=== PATIENT | male | born 1980 | race Caucasian/White ===

== ENCOUNTER → 2018-03-14 16:03 | Outpatient (CLI) | payer MEDICAID, SELFPAY ==
--- NOTE | 2018-03-14 16:26 | MRI_ITS ---
STUDY: MRI LEFT SHOULDER REASON FOR EXAM: Male, 37 years old. Limited range of motion. Pain. History of prior dislocations. TECHNIQUE: Standardized fat and water weighted pulse sequences were obtained in all 3 orthogonal planes. COMPARISON: X-ray January 04, 2016 FINDINGS: Normal supraspinatus tendon. There is infraspinatus tendinosis with tendon thickening, but without a demonstrated tendon tear. Normal subscapularis tendon. Normal teres minor tendon. Normal supraspinatus muscle. Normal infraspinatus muscle. Normal subscapularis muscle. Normal teres minor muscle. There is a moderate volume joint effusion of the glenohumeral joint. There is small joint effusion. There is spurring of the humeral head and glenoid. Normal biceps labral complex. Normal intracapsular long biceps tendon. There is fluid in the biceps tendon sheath. There is labral degeneration with blunting of the connor, but there is no demonstrated discrete labral tear. Normal capsulo- ligamentous complex. Normal rotator interval. 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 There is a Type II morphology (curved), with a neutral orientation. There is os acromiale. There is no subacromial-subdeltoid bursal fluid. Normal visualized coracohumeral and coracoacromial ligaments. Normal quadrilateral space. Normal axillary space. Normal deltoid muscle. Normal trapezius muscle. MRI/Upper Ext Joint Only(Routine) IMPRESSION: Glenohumeral arthrosis. No rotator cuff tear. Electronically Signed: Minh Leal MD at 18:37 EDT , Service support ,
== END ==
PROVIDERS: Family Provider Family Medicine; PCP Family Medicine; Visit Provider Family Medicine
DX: M19.012 Primary osteoarthritis, left shoulder (principal); M75.102 Unspecified rotator cuff tear or rupture of left shoulder, not specified as traumatic
CPT/HCPCS: 73221

== ENCOUNTER → 2018-08-17 14:59 | Outpatient (CLI) | payer MEDICAID, SELFPAY ==
[2018-08-21 12:07] LABS: Testosterone, Free 2.28 ng/dL (5.00-21.00)
[2018-08-22 11:29] LABS: Testosterone, % Free 2.96 % (1.50-4.20); Testosterone, Total 77 ng/dL (264-916)
== END ==
PROVIDERS: Family Provider Family Medicine; PCP Family Medicine; Referring Provider Family Medicine; Visit Provider Family Medicine
DX: E29.1 Testicular hypofunction (principal)
CPT/HCPCS: 36415; 84402; 84403

== ENCOUNTER → 2018-08-28 14:57 | Outpatient (CLI) | payer MEDICAID, SELFPAY ==
--- NOTE | 2018-08-28 15:08 | RAD_ITS ---
STUDY: X-RAY - RIGHT SHOULDER REASON FOR EXAM: Male, 37 years old. Chronic right shoulder pain TECHNIQUE: 4 view(s) of the shoulder. COMPARISON: None. FINDINGS: There are mild degenerative changes of the acromioclavicular joint. The glenohumeral articulation is normal. There are no acute fractures. The surrounding soft tissues are normal. RAD/Shoulder min 2 Views IMPRESSION: No fracture. Mild degenerative changes of the acromioclavicular joint Electronically Signed: Henok Liang MD at 2:27 EDT Tel , Service support ,
[2018-09-01 14:07] LABS: Testosterone, Free 2.12 ng/dL (5.00-21.00)
[2018-09-04 11:50] LABS: Testosterone, % Free 3.48 % (1.50-4.20); Testosterone, Total 61 ng/dL (264-916)
== END ==
PROVIDERS: Family Provider Family Medicine; PCP Family Medicine; Referring Provider Family Medicine; Visit Provider Family Medicine
DX: E29.1 Testicular hypofunction (principal); M25.511 Pain in right shoulder
CPT/HCPCS: 36415; 73030; 84402; 84403

== ENCOUNTER → 2018-12-21 11:42 | Outpatient (CLI) | payer MEDICAID, SELFPAY ==
--- NOTE | 2018-12-21 11:44 | RAD_ITS ---
STUDY: X-RAY - RIGHT KNEE REASON FOR EXAM: Male, 38 years old. Pain. History of torn meniscus. TECHNIQUE: 4 view(s) of the knee. COMPARISON: Comparison is made with prior examination dated April 30, 2016. FINDINGS: Normal visualized distal femur. Normal visualized proximal tibia and fibula. Normal proximal tibiofibular articulation. Normal medial femorotibial compartment. Normal lateral femorotibial compartment. Normal patellofemoral articulation. Moderate sized joint effusion. RAD/Knee 4 or More Views IMPRESSION: Moderate sized joint effusion. Electronically Signed: Ash Thompson MD at 13:45 EST , Service support ,
== END ==
PROVIDERS: Family Provider Family Medicine; PCP Family Medicine; Referring Provider Anesthesiology; Visit Provider Anesthesiology
DX: M25.561 Pain in right knee (principal)
CPT/HCPCS: 73564

== ENCOUNTER → 2019-03-05 10:16 | Outpatient (CLI) | payer MEDICAID, SELFPAY ==
--- NOTE | 2019-03-05 10:27 | MRI_ITS ---
STUDY: MRI RIGHT KNEE REASON FOR EXAM: Right knee pain, meniscal repair 3 years ago. TECHNIQUE: Standardized fat and water weighted pulse sequences were obtained in all 3 orthogonal planes. COMPARISON: Radiographs 12/21/2018 and MRI images 05/03/2016. FINDINGS: There is interval development of a radial tear at the root of the posterior horn of the medial meniscus (T2 coronal images 9, 10). There is mild peripheral subluxation of the medial meniscus. 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 There is mild bone edema of the medial femoral condyle and tibial plateau (T2 coronal images 15-18), a stress phenomenon. Normal medial collateral ligamentous complex (MCL). Normal distal semimembranosus, gracilis and semitendinosus tendons. Normal lateral meniscus. Normal hyaline cartilage of the lateral femorotibial compartment. Normal lateral femoral condyle and tibial plateau. Normal proximal tibiofibular articulation. Normal lateral collateral (fibular) ligament. Normal popliteus tendon. Normal biceps femoris tendon. Normal anterior cruciate ligament (ACL). Normal posterior cruciate ligament (PCL). Normal congruent patellofemoral articulation. Normal hyaline cartilage of the patellofemoral compartment. Normal medial and lateral patellar retinaculum. Normal visualized quadriceps tendon. Normal patellar tendon. There is postoperative scarring in Hoffa's fat pad. There is a small joint effusion. There is a thickened medial patellar plica (T2 axial image 11). The soft tissues are unremarkable. The otherwise visualized osseous structures are unremarkable. MRI/Lower Ext Joint Only (Routine) IMPRESSION: Radial tear at the root of the posterior horn of the medial meniscus. Mild bone edema of the medial femoral condyle and medial tibial plateau, a stress phenomenon. 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 Thickened medial patellar plica. Small joint effusion. Electronically Signed: Shaun Novak MD at 12:15 EDT Tel , Service support ,
--- NOTE | 2019-03-05 12:23 | RAD_ITS ---
STUDY: X-RAY - CERVICAL SPINE REASON FOR EXAM: Male, 38 years old. Neck pain for months. Numbness in the arms and fingers. History of back surgery. TECHNIQUE: 6 view(s) of the cervical spine were obtained. COMPARISON: Cervical spine, November 11, 2015. FINDINGS: Normal anterior atlantoaxial articulation. Normal odontoid process. Normal cervical lordosis. There is multi-level endplate spondylosis. There is multi-level degenerative disc disease with multilevel disc space narrowing. There is very minimal neural foraminal narrowing on the left at C6-7 and on the right at C5-C6 and C6-7. There is no evidence of acute fracture or loss of vertebral axial height. There is maintenance of normal alignment. The soft tissue structures are unremarkable. RAD/Cerv Spine 4 or 5 Views IMPRESSION: Degenerative changes of the cervical spine. There is no major interval change. Electronically Signed: Candido Desouza DO at 17:33 EDT Tel [phone], Service support ,
== END ==
PROVIDERS: Family Provider Family Medicine; PCP Family Medicine; Referring Provider Anesthesiology; Visit Provider Anesthesiology
DX: M25.561 Pain in right knee (principal); M25.451 Effusion, right hip
CPT/HCPCS: 72050; 73721

== ENCOUNTER → 2019-07-09 06:50 | Outpatient (CLI) | payer MEDICAID, SELFPAY ==
--- NOTE | 2019-07-09 09:55 | NEURO ---
NCS and/or EMG Patient Report Ordering Doctor: Prasanna Camacho DATE OF SERVICE: 07/09/19 This is a bilateral upper extremity nerve conduction study performed on this 38-year-old male who reports numbness in the tips of his first 3 digits bilaterally for 6 months. He also describes pain in the anterior aspect of both shoulders worse if he flexes his arms behind his back. He is healthy otherwise. Bilateral upper extremity sensory and motor nerve conduction studies are performed demonstrating severe prolongation of the median motor and sensory distal latencies bilaterally with preservation of amplitudes and conduction velocities. The ulnar motor and sensory responses on the right side demonstrate decreased amplitude across the elbow consistent with an ulnar neuropathy as well on the right. Bilateral radial sensory responses are normal. The median F waves and the left ulnar F-wave latencies are prolonged. This is an abnormal nerve conduction study of the bilateral upper extremities consistent with moderate to severe carpal tunnel syndrome bilaterally as well as a right ulnar neuropathy at the elbow.
== END ==
PROVIDERS: Family Provider Family Medicine; PCP Family Medicine; Referring Provider Family Medicine; Visit Provider Family Medicine
DX: R20.2 Paresthesia of skin (principal)
CPT/HCPCS: 95911

== ENCOUNTER → 2019-11-06 19:21 | Outpatient (CLI) | payer MEDICAID, SELFPAY ==
--- NOTE | 2019-11-06 19:30 | RAD_ITS ---
STUDY: X-RAY - PELVIS AND LEFT HIP REASON FOR EXAM: Male, 38 years old. LEFT hip pain TECHNIQUE: 3 views of the pelvis and hip. COMPARISON: None. FINDINGS: There is a non-specific bowel gas pattern. Normal visualized soft tissue structures. There is fusion hardware of the lumbosacral spine with laminectomy defects. Normal bilateral iliac wings, sacroiliac joints and visualized sacrum. Normal bilateral superior and inferior pubic rami. Normal pubic symphysis. Normal bilateral ischial tuberosities. Left hip replacement is in radiographic alignment without periimplant lucencies or associated fracture. RAD/HIP, UNI W/ Pelvis 2-3 Views IMPRESSION: Left hip replacement in radiographic alignment. Electronically Signed: Lencho Hendrickson MD ([place]) at 8:07 EST , Service support ,
--- NOTE | 2019-11-06 19:31 | RAD_ITS ---
STUDY: X-RAY - LUMBAR SPINE REASON FOR EXAM: Male, 38 years old. Back pain. TECHNIQUE: 4 view(s) of the lumbar spine were obtained. COMPARISON: 05/30/2017 lumbar spine radiographs. FINDINGS: No change in alignment with flexion/extension. Mild right scoliosis centered at L3 again demonstrated. Status post posterior fusion and laminectomy L4-5 with intact bilateral pedicle screws. Disc spacing device at L5-S1. No fracture or osseous destruction. Multilevel degenerative changes similar to prior. RAD/Lumbar Spine 2 or 3 Views IMPRESSION: Postoperative and degenerative changes. No evidence of instability. Electronically Signed: Michael Andrews, at 3:14 EST Tel , Service support ,
== END ==
PROVIDERS: Family Provider Family Medicine; PCP Family Medicine; Referring Provider Family Medicine; Visit Provider Family Medicine
DX: M54.16 Radiculopathy, lumbar region (principal); G89.29 Other chronic pain; M25.552 Pain in left hip; Z96.642 Presence of left artificial hip joint
CPT/HCPCS: 72100; 73502

== ENCOUNTER → 2019-12-06 16:21 | Outpatient (CLI) | payer MEDICAID, SELFPAY ==
--- NOTE | 2019-12-06 16:27 | MRI_ITS ---
STUDY: MRI LUMBAR SPINE WITHOUT CONTRAST REASON FOR EXAM: Male, 39 years old. low back pain itno lower extremitiies urine incontenence sx 3yrs AGO TECHNIQUE: Standardized fat and water weighted pulse sequences were obtained in the sagittal and axial planes. COMPARISON: Lumbar spine x-rays November 06, 2019 FINDINGS: T12-L1: Mild endplate spurring.. Normal disc height, hydration and minimal annular bulge. Normal bilateral facet joints. Normal central canal and bilateral lateral recesses. Normal bilateral intervertebral neural foramina. Normal lumbar lordosis. There is no substantial scoliosis. Normal conus medullaris that terminates at T12-L1 L1-2: Mild endplate spurring.. Narrowed disc space with hydrated disc demonstrating minor annular bulge.. Normal bilateral facet joints. Mild narrowing of central canal. Normal bilateral lateral recesses. Normal bilateral intervertebral neural foramina. L2-3: Mild endplate spurring.. Normal disc height, hydration and mild annular bulge.. Normal bilateral facet joints. Mild narrowing of central canal. Normal bilateral lateral recesses. Normal bilateral intervertebral neural foramina. L3-4: Narrowed disc space with hydrated disc demonstrating mild annular bulge. Bilateral facet arthropathy and mild thickening of ligamenta flava.. Moderate narrowing of the central canal. Mild bilateral recess and moderate neural foraminal stenosis L4-5: Status post bilateral laminectomy and posterior fusion. Mild facet arthropathy.. Normal central canal and bilateral lateral recesses. Normal bilateral intervertebral neural foramina. L5-S1: Status post bilateral laminectomy and anterior fusion with disc spacer placement. Mild facet arthropathy. Normal central canal and bilateral lateral recesses. Normal bilateral intervertebral neural foramina. Normal visualized sacral ala. Normal visualized paraspinous soft tissue structures. Findings are similar to that seen on prior study given differences in imaging techniques MRI/Spine Lumbar (Routine) IMPRESSION: No acute fracture or other significant bony pathology. Status post bilateral laminectomy and fusion at L4-5 and L5-S1. Spinal stenosis at L3-4 secondary to bulging annulus and facet arthropathy. Minimal bulging of the discs at L2-3 and L1-2 without significant spinal stenosis Electronically Signed: Onesimo Gallagher MD at 19:57 EST , Service support ,
--- NOTE | 2019-12-06 17:33 | RAD_ITS ---
HISTORY: RIGHT SHOULDER PAIN WITH NERVE PAIN IN RIGHT ARM, HX OF DDD TECHNIQUE: Cervical spine 5 views Number of images including paperwork: 5 COMPARISON: 03/05/2019 FINDINGS: VERTEBRAE: No acute fracture. VERTEBRAL ALIGNMENT: No traumatic subluxation. Loss of normal cervical lordosis. DISKS AND JOINTS: Mild to moderate discogenic degenerative changes, most pronounced at C5-6 and C6-7. Mild foraminal stenosis at these levels, right greater than left, appears similar. SOFT TISSUES: Unremarkable paraspinous soft tissues. RAD/Cerv Spine 4 or 5 Views IMPRESSION: 1. No acute osseous abnormality. 2. Loss of normal cervical lordosis may be related to positioning or muscle spasm. 3. Cervical spondylosis. at 0512 Reported and signed by: Sharron Tiwari MD Electronically Signed: Sharron Tiwari MD at 5:11 EST Tel , Service support ,
== END ==
PROVIDERS: Family Provider Family Medicine; PCP Family Medicine; Referring Provider Family Medicine; Visit Provider Family Medicine
DX: M51.06 Intervertebral disc disorders with myelopathy, lumbar region (principal); R32 Unspecified urinary incontinence; M54.2 Cervicalgia
CPT/HCPCS: 72050; 72148

== ENCOUNTER → 2021-02-05 14:02 | Outpatient (CLI) | payer MEDICAID, SELFPAY ==
--- NOTE | 2021-02-05 14:05 | RAD_ITS ---
INDICATION: cervical radiculopathy, history of multisite arthritis EXAMINATION/TECHNIQUE: X-RAY - XR Spine Cervical 4 or 5 Views COMPARISON: 12/06/2019 FINDINGS: VERTEBRAE: Preserved vertebral body height. No fracture. No spondylolisthesis. Preservation of the normal cervical lordosis. No significant facet arthropathy. Multilevel anterior spondylosis particularly of the lower cervical levels. Bilateral foraminal narrowing at C6-C7 and C3-C4 as well as right C4-C5 and C5-C6. DISCS: Multilevel disc space narrowing most conspicuous at C3-C4, C5-C6 and C6-C7. NECK SOFT TISSUES: No prevertebral soft tissue widening. LUNG APICES: Clear. RAD/Cerv Spine 4 or 5 Views IMPRESSION: Multilevel degenerative changes with right more than left foraminal narrowing due to uncovertebral hypertrophy. Overall stable since 12/09/2019. Electronically Signed: Lencho Hendrickson MD ([place]) at 14:08 EDT , Service support ,
== END ==
PROVIDERS: PCP Family Medicine; Referring Provider Family Medicine; Visit Provider Family Medicine
DX: M54.12 Radiculopathy, cervical region (principal)
CPT/HCPCS: 72050

== ENCOUNTER → 2021-07-15 13:23 | Outpatient (CLI) | payer MEDICAID, SELFPAY ==
--- NOTE | 2021-07-15 13:44 | MRI_ITS ---
STUDY: MRI CERVICAL SPINE WITHOUT CONTRAST REASON FOR EXAM: Male, 40 years old. WORSENING R ARM WEAKNESS, NO TRAUMA TECHNIQUE: Standardized fat and water weighted pulse sequences were obtained in the sagittal and axial planes. COMPARISON: X-ray 02/05/2021 FINDINGS: Normal foramen magnum and brainstem-cervical cord junction. Normal craniovertebral junction. Normal anterior atlantoaxial articulation. Normal odontoid process. There is reversal of the normal cervical lordosis. Normal vertebral bodies and posterior osseous elements. C2-3: Normal endplates. Normal disc height, signal and morphology. Normal central canal and intervertebral neural foramina. C3-4: Mild broad disc osteophyte complex and bilateral vertebral hypertrophy produces moderate spinal stenosis with abutment of the central spinal cord and mild bilateral neural foraminal stenosis. C4-5: Mild bilobed disc osteophyte complex and bilateral uncovertebral hypertrophy produces moderate spinal stenosis with abutment of the cervical spinal cord and mild bilateral neural foraminal stenosis. C5-6: Mild broad disc osteophyte complex asymmetric to the right produces moderate spinal stenosis with abutment of the right hemicord and mild right neural foraminal stenosis. C6-7: Moderate broad disc osteophyte complex and bilateral uncovertebral hypertrophy produces moderate spinal stenosis with abutment of the central spinal cord and mild bilateral neural foraminal stenosis. C7-T1: Normal endplates. Normal disc height, signal and morphology. Normal central canal and intervertebral neural foramina. Normal cervical cord. Normal visualized soft tissue structures. MRI/Spine Cervical (Routine) IMPRESSION: Multilevel degenerative changes, as described above. Electronically Signed: Waylon Munoz MD at 15:15 EDT Tel , Service support ,
== END ==
PROVIDERS: PCP Family Medicine; Referring Provider Family Medicine; Visit Provider Family Medicine
DX: M47.22 Other spondylosis with radiculopathy, cervical region (principal); M48.02 Spinal stenosis, cervical region
CPT/HCPCS: 72141

== ENCOUNTER → 2022-05-09 | Outpatient (CLI) | payer MEDICAID, SELFPAY ==
[2022-05-09 12:52] LABS: Erythrocyte Sedimentation Rate 15 mm/hr (0-20)
[2022-05-09 13:24] LABS: CRP 4.29 mg/L (0.0-3.0); Rheumatoid Factor < 10.0 IU/mL (<15)
[2022-05-10 14:58] LABS: ANTINUCLEAR ANTIBODIES DIRECT Negative (Negative)
[2022-05-11 12:06] LABS: CCP IgG Antibodies 4 units (0-19)
== END | disposition home or self-care (01) ==
PROVIDERS: PCP Family Medicine; Referring Provider Family Medicine; Visit Provider Family Medicine
DX: M13.0 Polyarthritis, unspecified (principal)
CPT/HCPCS: 36415; 85652; 86038; 86140; 86200; 86431

== ENCOUNTER → 2022-12-06 | Outpatient (CLI) | payer MEDICARE, MEDICAID, SELFPAY ==
[2022-12-06 16:12] LABS: Insulin 119.6 mU/L (2.6-37.6)
[2022-12-06 16:34] LABS: AST(SGOT) 25 U/L (15-37); Alanine Aminotransfer ALT/SGPT 55 U/L (16-61); Albumin, Serum 3.7 g/dL (3.2-5.0); Alkaline Phosphatase 67 U/L (45-117); Anion Gap 7 (5-15); BUN 14 mg/dL (7-18); BUN/Creat Ratio 20.3 RATIO (10-20); Calcium,Total 8.8 mg/dL (8.5-10.1); Chloride 104 mmol/L (98-107); Creatinine, Serum 0.69 mg/dL (0.70-1.30); EST Glomerular Filtration Rate 133 mL/min (>60); Est Glom Filt Rate - Afr Amer 160 mL/min (>60); Globulin 3.8 g/dL (2.2-4.2); Glucose 103 mg/dL (74-106); Potassium 4.5 mmol/L (3.5-5.1); Protein, Total 7.5 g/dL (6.4-8.2); Sodium Level 140 mmol/L (136-145); Thyroid Stim Hormone (TSH) 1.13 uIU/mL (0.358-3.74)
[2022-12-06 16:48] LABS: Hemoglobin A1c 5.3 % (3.8-5.6)
== END | disposition home or self-care (01) ==
LOC: BFHLAB 11:20
PROVIDERS: PCP Family Medicine; Visit Provider Family Medicine
DX: E16.2 Hypoglycemia, unspecified (principal)
CPT/HCPCS: 36415; 80053; 82533; 83036; 83525; 84443

== ENCOUNTER → 2022-12-08 | Outpatient (CLI) | payer MEDICAID, SELFPAY | END | disposition home or self-care (01) | LOC: LAB.FUTURE 08:39 | PROVIDERS: PCP Family Medicine; Visit Provider Family Medicine | DX: E16.2 Hypoglycemia, unspecified (principal) ==

== ENCOUNTER → 2023-01-10 | Outpatient (CLI) | payer MEDICARE, MEDICAID, SELFPAY ==
[2023-01-10 12:55] LABS: Glucose 108 mg/dL (74-106)
[2023-01-10 12:59] LABS: Insulin 89.9 mU/L (2.6-37.6)
[2023-01-11 20:33] LABS: C-Peptide 7.2 ng/mL (1.1-4.4)
== END | disposition home or self-care (01) ==
PROVIDERS: PCP Family Medicine; Visit Provider Family Medicine
DX: E16.2 Hypoglycemia, unspecified (principal)
CPT/HCPCS: 36415; 82947; 83525; 84681